=== PATIENT | male | born 1960 | race Caucasian/White ===

== ENCOUNTER → 2016-06-06 12:56 | Outpatient (CLI) | payer BC | END | disposition home or self-care (01) | LOC: D.CT 12:56 | DX: R10.9 Unspecified abdominal pain (principal) ==

== ENCOUNTER → 2018-03-19 07:05 | Outpatient (CLI) | payer BC | END | disposition home or self-care (01) | LOC: D.US 07:05 | DX: R10.11 Right upper quadrant pain (principal) ==

== ENCOUNTER → 2018-04-03 07:20 | Outpatient (CLI) | payer BC | END | disposition home or self-care (01) | LOC: D.NM 07:20 | DX: R10.9 Unspecified abdominal pain (principal) ==